=== PATIENT | male | born 1955 | race Two or more races ===

== ENCOUNTER 2019-03-17 15:20 | Emergency (ER) | payer MEDICAID ==
[~2019-03-17] VITALS: Ht 170.2 cm; Wt 77.1 kg
[2019-03-17 17:23] LABS: Basophils # (auto) 0 uL; Eosinophils # (auto) 0 uL; Lymphocytes # (auto) 0.7 uL; Mean Corpuscular Hemoglobin 31.4 pg (28.0-32.0); Monocytes # (auto) 0.8 uL; Red Cell Distribution Width 16.2 % (11.8-14.3)
[2019-03-17 17:27] LABS: Basophils % (auto) 0.9 % (0.0-2.0); Eosinophils % (auto) 0.5 % (0.0-7.0); Hemoglobin 17.6 g/dL (13.5-17.5); Mean Corpuscular Hgb Conc. 33.2 g/dL (32.0-36.0); Mean Corpuscular Volume 94.6 fL (80.0-100.0); Monocytes % (auto) 13.2 % (0.0-12.0); Neutrophils # (auto) 4.1 uL; Neutrophils % (auto) 72.4 % (37.0-80.0); Platelet Count (auto) 183 10^3/uL (140-450); White Blood Cell 5.7 10^3/uL (4.4-10.8)
[2019-03-17] MEDS ORDERED: methylPREDNISolone SOD SUCC 125 MG/2 ML VL IV ONE (17:30)
[2019-03-17] MEDS ORDERED: IPRATROPIUM BROM 0.5 MG/2.5ML INH SOL HHN ONE (17:30)
[2019-03-17] MEDS ORDERED: ALBUTEROL SULF 2.5 MG/0.5ML(0.5%) NEB SOLN HHN ONE (17:30)
[2019-03-17] MEDS ORDERED: HYDROcodone-ACET 5/325MG TAB PO ONE (17:30)
[2019-03-17 17:39] LABS: Alanine Aminotransferase 30 U/L (16-61); Albumin 3.2 g/dL (3.4-5.0); Anion Gap 5 (5-15); Aspartate Aminotransferase 32 U/L (15-37); BUN/Creatinine Ratio 17.6; Blood Urea Nitrogen 13 mg/dL (7-18); Calcium 8.2 mg/dL (8.5-10.1); Carbon Dioxide 32 mmol/L (21-32); Chloride 102 mmol/L (98-107); GFR African American 138 mL/min; GFR Non-African American 114 mL/min; Glucose 94 mg/dL (74-106); Sodium 139 mmol/L (136-145)
[2019-03-17 17:44] LABS: Alkaline Phosphatase 130 U/L (45-117); Bilirubin, Total 0.9 mg/dL (0.2-1.0); Total Protein 6.9 g/dL (6.4-8.2)
[2019-03-17 20:46] VITALS: BP 134/92
== END 2019-03-17 20:58 | disposition home or self-care (01) ==
LOC: ER 15:20
DX: S20.219A Contusion of unspecified front wall of thorax, initial encounter (principal); J44.1 Chronic obstructive pulmonary disease with (acute) exacerbation; I11.0 Hypertensive heart disease with heart failure; I50.9 Heart failure, unspecified; E11.9 Type 2 diabetes mellitus without complications; E78.5 Hyperlipidemia, unspecified; F17.210 Nicotine dependence, cigarettes, uncomplicated; F12.90 Cannabis use, unspecified, uncomplicated; W18.39XA Other fall on same level, initial encounter; Y93.89 Activity, other specified; Y99.8 Other external cause status; Y92.89 Other specified places as the place of occurrence of the external cause
CPT/HCPCS: 36415; 70450; 72070; 72125; 80053; 82962; 83735; 83880; 84484; 85025; 93005; 94640; 94761; 96374; 99284; J2930; J7611; J7644; 94644

== ENCOUNTER 2020-08-06 15:22 | Inpatient (IN) | payer MEDICAID ==
[~2020-08-06] VITALS: Ht 170.2 cm; Wt 74.8 kg
[2020-08-06 16:07] LABS: Red Cell Distribution Width 15.1 % (11.8-14.3)
[2020-08-06 16:10] LABS: Hemoglobin 18.2 g/dL (13.5-17.5); Mean Corpuscular Hemoglobin 35.1 pg (28.0-32.0); Mean Corpuscular Hgb Conc. 34.3 g/dL (32.0-36.0); Mean Corpuscular Volume 102.3 fL (80.0-100.0); Platelet Count (auto) 115 10^3/uL (140-450); Red Blood Cells 5.18 10^6/uL (4.5-5.90); White Blood Cell 3.7 10^3/uL (4.4-10.8)
[2020-08-06 16:21] LABS: Band Neutrophils % (manual) 0; Basophils % (manual) 0 (0.0-2.0); Blast Cells 0; Eosinophils % (manual) 0 (0-7); Metamyelocytes % 0; Myelocytes % 0; Promyelocytes % 0; Reactive Lymphocytes 0
[2020-08-06 16:25] LABS: Calcium 7.9 mg/dL (8.5-10.1); Potassium 3.9 mmol/L (3.5-5.1)
[2020-08-06 16:36] LABS: BUN/Creatinine Ratio 19.4; Bilirubin, Total 0.5 mg/dL (0.2-1.0); Total Protein 6.3 g/dL (6.4-8.2)
[2020-08-06] MEDS ORDERED: ASPirin 81 mg TAB PO ONE (17:00)
[2020-08-06] MEDS ORDERED: methylPREDNISolone SOD SUCC 125 MG/2 ML VL IM ONE (17:00)
[2020-08-06] MEDS ORDERED: cefTRIAXone SOD 1,000 MG VL IM ONE (17:00)
[2020-08-06] MEDS ORDERED: cefTRIAXone 1GM/50ML D5W 50 ML IV ONE ×2 (17:08→17:30)
[2020-08-06] MEDS: SODIUM CHLORIDE 0.9% 1,000 ML IV ONE ×2 (17:16→17:27)
[2020-08-06] MEDS ORDERED: methylPREDNISolone SOD SUCC 125 MG/2 ML VL IV ONE (17:30)
[2020-08-06 18:16] LABS: Lymphocytes % (manual) 5 (10.0-50.0); Monocytes % (manual) 14 (0-12)
[2020-08-06] MEDS ORDERED: LORazepam 0.5 MG TAB PO PRN (19:45)
[2020-08-06] MEDS ORDERED: DOCUSATE CALCIUM 240 MG CAP PO PRN (19:45)
[2020-08-06] MEDS ORDERED: hydrALAZINE HCL 20 MG/ML VL IV PRN (19:45)
[2020-08-06] MEDS ORDERED: NITROGLYCERIN 0.4 MG SL TAB SL PRN (19:45)
[2020-08-06] MEDS ORDERED: VANCOMYCIN PER PHARMACY 0 MG IV SCH (19:45)
[2020-08-06] MEDS ORDERED: MORPHINE SULF INJ 2 MG/ML SYRINGE 1ML IV PRN ×2 (19:45)
[2020-08-06] MEDS ORDERED: ALBUTEROL SULF HFA 90MCG INH 200DOSE IN PRN (19:45)
[2020-08-06] MEDS: BUDESONIDE (INHALATION) 180 MCG IH IN SCH (22:00)
[2020-08-06] MEDS: VANCOMYCIN 1GM/250ML 250 ML IV SCH (22:59)
[2020-08-06] MEDS: ENOXAPARIN SOD 40 MG/0.4 ML SYRINGE SC SCH (23:00)
[2020-08-06] MEDS: methylPREDNISolone SOD SUCC 125 MG/2 ML VL IV SCH (23:00)
[2020-08-06 23:19] LABS: Magnesium 1.8 mg/dL (1.6-2.6)
[2020-08-06 23:52] LABS: CRP High Sensitivity 2.11 mg/dL (< 0.3)
[2020-08-07 03:39] VITALS: BP 140/98
[2020-08-07] MEDS: methylPREDNISolone SOD SUCC 125 MG/2 ML VL IV SCH (06:13)
[2020-08-07] MEDS: PIPERACILLIN-TAZOB 3.375GM 100 ML IV SCH ×3 (06:13→12:12)
[2020-08-07 08:00] VITALS: BP 127/69
[2020-08-07] MEDS: VANCOMYCIN 1GM/250ML 250 ML IV SCH (09:23)
[2020-08-07] MEDS: ENOXAPARIN SOD 40 MG/0.4 ML SYRINGE SC SCH (09:24)
[2020-08-07] MEDS: ZINC SULFATE 220mg CAP or TAB PO SCH (09:25)
[2020-08-07] MEDS: PANTOPRAZOLE 40 MG TAB PO SCH (09:25)
[2020-08-07] MEDS: CHOLECALCIFEROL (VITD3) 2,000 UNIT CAP PO SCH (09:25)
[2020-08-07] MEDS: ASCORBIC ACID 1,000 MG TAB PO SCH (09:25)
[2020-08-07] MEDS: BUDESONIDE (INHALATION) 180 MCG IH IN SCH ×2 (10:00→20:05)
[2020-08-07 12:27] LABS: Basophils # (auto) 0 10 ^3/uL (0-0.2); Eosinophils # (auto) 0 10 ^3/uL (0-0.8); Lymphocytes # (auto) 0.2 10 ^3/uL (0.4-5.4); Mean Corpuscular Hgb Conc. 33.8 g/dL (32.0-36.0); Monocytes # (auto) 0.2 10 ^3/uL (0-1.3); White Blood Cell 2.3 10^3/uL (4.4-10.8)
[2020-08-07 12:29] LABS: Basophils % (auto) 0.8 % (0.0-2.0); Hemoglobin 19.1 g/dL (13.5-17.5); Lymphocytes % (auto) 6.8 % (10.0-50.0); Mean Corpuscular Volume 103.4 fL (80.0-100.0); Monocytes % (auto) 8.3 % (0.0-12.0); Neutrophils # (auto) 1.9 10 ^3/uL (1.6-8.6); Neutrophils % (auto) 84.1 % (37.0-80.0); Nucleated Red Blood Cells % 0.3 %; Red Blood Cells 5.46 10^6/uL (4.5-5.90); Red Cell Distribution Width 15.1 % (11.8-14.3)
[2020-08-07] MEDS: ALBUTEROL SULF HFA 90MCG INH 200DOSE IN SCH (12:30)
[2020-08-07 12:34] LABS: Hematocrit 56.4 % (41.0-53.0)
[2020-08-07 12:48] LABS: Albumin 3.1 g/dL (3.4-5.0); Potassium 4.2 mmol/L (3.5-5.1)
[2020-08-07 12:54] LABS: Bilirubin, Total 0.5 mg/dL (0.2-1.0); Total Protein 6.7 g/dL (6.4-8.2)
[2020-08-07 13:10] LABS: Calcium 7.7 mg/dL (8.5-10.1)
[2020-08-07 13:28] LABS: Platelet Count (auto) 111 10^3/uL (140-450)
[2020-08-07 16:00] VITALS: BP 139/88
[2020-08-07] MEDS ORDERED: REMDESIVIR PER PHARMACY 0 ML IV SCH (16:30)
[2020-08-07] MEDS ORDERED: REMDESIVIR 200 MG in NS 210ml LOADING DOSE ADULT IV ONE (18:00)
[2020-08-07] MEDS: DOXYCYCLINE 100 MG TAB/CAP PO SCH (22:32)
[2020-08-08] VITALS: BP 117/81
[2020-08-08] MEDS: ACETAMINOPHEN 500 MG TAB PO PRN ×2 (00:36→10:27)
[2020-08-08] MEDS ORDERED: DEXTROSE (50%) 50ML SYRG IV PRN (02:00)
[2020-08-08] MEDS: ACCU-CHEK COMFORT CURVE STRIP VI SCH ×4 (07:30→22:24)
[2020-08-08] MEDS: InsuLIN REG 1unit/0.01ml Soln (100units/ml) SC SCH ×4 (07:30→22:10)
[2020-08-08 08:00] VITALS: BP 99/68
[2020-08-08 08:47] LABS: Basophils # (auto) 0 10 ^3/uL (0-0.2); Eosinophils # (auto) 0 10 ^3/uL (0-0.8); Monocytes # (auto) 0.6 10 ^3/uL (0-1.3); Monocytes % (auto) 7.9 % (0.0-12.0); Neutrophils # (auto) 6.1 10 ^3/uL (1.6-8.6); Nucleated Red Blood Cells % 0.2 %; White Blood Cell 7.4 10^3/uL (4.4-10.8)
[2020-08-08 08:50] LABS: Basophils % (auto) 0.1 % (0.0-2.0); Hemoglobin 18.9 g/dL (13.5-17.5); Lymphocytes # (auto) 0.7 10 ^3/uL (0.4-5.4); Lymphocytes % (auto) 9.7 % (10.0-50.0); Mean Corpuscular Hemoglobin 34.9 pg (28.0-32.0); Mean Corpuscular Hgb Conc. 33.7 g/dL (32.0-36.0); Mean Corpuscular Volume 103.6 fL (80.0-100.0); Neutrophils % (auto) 82.3 % (37.0-80.0); Platelet Count (auto) 105 10^3/uL (140-450); Red Blood Cells 5.43 10^6/uL (4.5-5.90); Red Cell Distribution Width 15.3 % (11.8-14.3)
[2020-08-08 08:52] LABS: Hematocrit 56.2 % (41.0-53.0)
[2020-08-08 09:09] LABS: Potassium 4.6 mmol/L (3.5-5.1)
[2020-08-08 09:37] LABS: BUN/Creatinine Ratio 26.6; Bilirubin, Total 0.4 mg/dL (0.2-1.0); CRP High Sensitivity 3.14 mg/dL (< 0.3); Calcium 8.4 mg/dL (8.5-10.1); Total Protein 6.5 g/dL (6.4-8.2)
[2020-08-08] MEDS ORDERED: ENOXAPARIN SOD 40 MG/0.4 ML SYRINGE SC SCH (10:00)
[2020-08-08] MEDS: DOXYCYCLINE 100 MG TAB/CAP PO SCH (10:27)
[2020-08-08] MEDS: ZINC SULFATE 220mg CAP or TAB PO SCH (10:27)
[2020-08-08] MEDS: CHOLECALCIFEROL (VITD3) 2,000 UNIT CAP PO SCH (10:27)
[2020-08-08] MEDS: PANTOPRAZOLE 40 MG TAB PO SCH (10:27)
[2020-08-08] MEDS: ASCORBIC ACID 1,000 MG TAB PO SCH (10:27)
[2020-08-08] MEDS: DexAMETHasone SOD PHOS 10MG/1ML VIAL INJ IV SCH (10:28)
[2020-08-08] MEDS: REMDESIVIR 100mg 100 MG in SODIUM CHL 0.9% 230 ML IV SCH (14:50)
[2020-08-08 16:19] VITALS: BP 128/82
[2020-08-08] MEDS: ALBUTEROL SULF HFA 90MCG INH 200DOSE IN SCH (19:19)
[2020-08-08] MEDS: BUDESONIDE (INHALATION) 180 MCG IH IN SCH (19:19)
[2020-08-08] MEDS ORDERED: SODIUM CHLORIDE 0.9% 1,000 ML IV SCH (21:15)
[2020-08-08] MEDS: FUROSEMIDE 20 MG/2 ML VIAL IV SCH (22:00)
[2020-08-08] MEDS: ENOXAPARIN SOD 40 MG/0.4 ML SYRINGE SC SCH (22:24)
[2020-08-09] VITALS: BP 126/79
[2020-08-09] MEDS: FUROSEMIDE 20 MG/2 ML VIAL IV SCH (05:23)
[2020-08-09] MEDS: InsuLIN REG 1unit/0.01ml Soln (100units/ml) SC SCH ×3 (05:23→17:00)
[2020-08-09] MEDS: ACCU-CHEK COMFORT CURVE STRIP VI SCH ×3 (05:24→18:04)
[2020-08-09 06:53] LABS: Basophils # (auto) 0 10 ^3/uL (0-0.2); Basophils % (auto) 0.1 % (0.0-2.0); Eosinophils # (auto) 0 10 ^3/uL (0-0.8); Hemoglobin 18.6 g/dL (13.5-17.5); Monocytes # (auto) 0.4 10 ^3/uL (0-1.3)
[2020-08-09 06:56] LABS: Lymphocytes # (auto) 0.7 10 ^3/uL (0.4-5.4); Lymphocytes % (auto) 12.2 % (10.0-50.0); Mean Corpuscular Hemoglobin 34.3 pg (28.0-32.0); Mean Corpuscular Hgb Conc. 33.1 g/dL (32.0-36.0); Mean Corpuscular Volume 103.5 fL (80.0-100.0); Monocytes % (auto) 7.5 % (0.0-12.0); Neutrophils # (auto) 4.4 10 ^3/uL (1.6-8.6); Neutrophils % (auto) 80.2 % (37.0-80.0); Nucleated Red Blood Cells % 0.1 %; Platelet Count (auto) 90 10^3/uL (140-450); Red Blood Cells 5.42 10^6/uL (4.5-5.90); Red Cell Distribution Width 15.2 % (11.8-14.3); White Blood Cell 5.5 10^3/uL (4.4-10.8)
[2020-08-09 07:04] LABS: Hematocrit 56.1 % (41.0-53.0)
[2020-08-09 07:06] LABS: INR 1.34 (0.9-1.15); Partial Thromboplastin Time 42.3 sec (23.0-31.2)
[2020-08-09 07:20] LABS: Potassium 4.3 mmol/L (3.5-5.1)
[2020-08-09 07:30] VITALS: BP 125/93
[2020-08-09 07:38] LABS: Albumin 3.2 g/dL (3.4-5.0); BUN/Creatinine Ratio 30.8; Bilirubin, Total 0.5 mg/dL (0.2-1.0); Calcium 8.1 mg/dL (8.5-10.1); Magnesium 2.2 mg/dL (1.6-2.6); Phosphorus 2.7 mg/dL (2.5-4.90); Total Protein 6.7 g/dL (6.4-8.2)
[2020-08-09] MEDS: ALBUTEROL SULF HFA 90MCG INH 200DOSE IN SCH (07:58)
[2020-08-09 08:00] VITALS: BP 125/93
[2020-08-09 08:16] LABS: CRP High Sensitivity 1.15 mg/dL (< 0.3)
[2020-08-09] MEDS ORDERED: cefTRIAXone 1GM/50ML D5W 50 ML IV SCH (09:00)
[2020-08-09] MEDS: DexAMETHasone SOD PHOS 10MG/1ML VIAL INJ IV SCH (09:48)
[2020-08-09] MEDS: ZINC SULFATE 220mg CAP or TAB PO SCH (09:48)
[2020-08-09] MEDS: ASCORBIC ACID 1,000 MG TAB PO SCH (09:49)
[2020-08-09] MEDS: CHOLECALCIFEROL (VITD3) 2,000 UNIT CAP PO SCH (09:49)
[2020-08-09] MEDS: PANTOPRAZOLE 40 MG TAB PO SCH (09:49)
[2020-08-09] MEDS ORDERED: AZITHROMYCIN 500MG/ 250ML 250 ML IV SCH (10:00)
[2020-08-09] MEDS ORDERED: POTASSIUM CHLORIDE 8 MEQ TAB PO SCH (10:00)
[2020-08-09] MEDS: ENOXAPARIN SOD 40 MG/0.4 ML SYRINGE SC SCH (10:00)
[2020-08-09] MEDS: BUDESONIDE (INHALATION) 180 MCG IH IN SCH (10:03)
[2020-08-09 15:30] VITALS: BP 140/97
[2020-08-09] MEDS: REMDESIVIR 100mg 100 MG in SODIUM CHL 0.9% 230 ML IV SCH (15:48)
[2020-08-09 17:09] VITALS: BP 140/97
== END 2020-08-09 18:39 | disposition home health service (06) | DRG 720 ==
LOC: ER 15:22 → OVERFLOW 19:52 → TELE-WESTW 08-07 03:20
PROVIDERS: ADMIT Family Medicine; ATTEND Internal Medicine
PROC: XW033E5 Introduction of Remdesivir Anti-infective into Peripheral Vein, Percutaneous Approach, New Technology Group 5 (ICD-10-PCS; principal; 2020-08-07)
PROC: 05HC33Z Insertion of Infusion Device into Left Basilic Vein, Percutaneous Approach (ICD-10-PCS; 2020-08-09)
PROC: B54NZZA Ultrasonography of Left Upper Extremity Veins, Guidance (ICD-10-PCS; 2020-08-09)
DX: A41.89 Other specified sepsis (principal); J12.82 Pneumonia due to coronavirus disease 2019; I10 Essential (primary) hypertension; E11.65 Type 2 diabetes mellitus with hyperglycemia; J96.01 Acute respiratory failure with hypoxia; U07.1 COVID-19; D69.6 Thrombocytopenia, unspecified; F12.10 Cannabis abuse, uncomplicated; F17.210 Nicotine dependence, cigarettes, uncomplicated; J44.0 Chronic obstructive pulmonary disease with (acute) lower respiratory infection; N40.0 Benign prostatic hyperplasia without lower urinary tract symptoms; Z79.82 Long term (current) use of aspirin; Z99.81 Dependence on supplemental oxygen; Z82.49 Family history of ischemic heart disease and other diseases of the circulatory system
CPT/HCPCS: 36415; 36600; 71045; 80053; 80061; 82728; 82805; 82962; 83036; 83605; 83615; 83735; 83880; 84100; 84443; 84484; 85007; 85025; 85027; 85379; 85610; 85730; 86141; 87040; 87426; 94640; G0378; J0696; J1100; J1815; J2543

== ENCOUNTER 2020-08-10 09:03 | Outpatient (CLI) | payer MEDICAID ==
[~2020-08-10] VITALS: Ht 170.2 cm; Wt 73.0 kg
[2020-08-10] MEDS ORDERED: REMDESIVIR PER PHARMACY 0 ML IV SCH (09:15)
[2020-08-10 09:42] VITALS: BP 141/91
[2020-08-10] MEDS ORDERED: REMDESIVIR 100mg 100 MG in SODIUM CHL 0.9% 230 ML IV SCH (10:00)
[2020-08-10 11:09] VITALS: BP 156/96
== END 2020-08-10 11:30 | disposition home or self-care (01) ==
LOC: ER 09:03
PROVIDERS: ATTEND Internal Medicine
DX: U07.1 COVID-19 (principal); I10 Essential (primary) hypertension; J44.9 Chronic obstructive pulmonary disease, unspecified; F17.210 Nicotine dependence, cigarettes, uncomplicated; J18.9 Pneumonia, unspecified organism; E11.65 Type 2 diabetes mellitus with hyperglycemia; Z79.82 Long term (current) use of aspirin; Z99.81 Dependence on supplemental oxygen

== ENCOUNTER → 2020-08-11 | Outpatient (CLI) | payer MEDICAID ==
[~2020-08-11] VITALS: Ht 30.5 cm; Wt 0.5 kg
[~2020-08-11] MED LIST: REMDESIVIR 100mg 100 MG in SODIUM CHL 0.9% 230 ML IV ONE
[2020-08-11 09:12] VITALS: BP 134/84
[2020-08-11 09:20] VITALS: BP 134/84
[2020-08-11 09:35] VITALS: BP 134/84
[2020-08-11 10:20] VITALS: BP 142/87
[2020-08-11 10:50] VITALS: BP 140/92
== END | disposition home or self-care (01) ==
LOC: ER 08:52
PROVIDERS: ATTEND Internal Medicine
DX: U07.1 COVID-19 (principal); J44.9 Chronic obstructive pulmonary disease, unspecified; F17.210 Nicotine dependence, cigarettes, uncomplicated; E11.65 Type 2 diabetes mellitus with hyperglycemia; I10 Essential (primary) hypertension; J18.9 Pneumonia, unspecified organism; Z79.82 Long term (current) use of aspirin; Z99.81 Dependence on supplemental oxygen

== ENCOUNTER 2020-12-16 16:11 | Inpatient (IN) | payer MEDICAID ==
[~2020-12-16] VITALS: Ht 170.2 cm; Wt 80.7 kg
[2020-12-16 17:07] LABS: Basophils # (auto) 0 10 ^3/uL (0-0.2); Eosinophils # (auto) 0.1 10 ^3/uL (0-0.8); Lymphocytes # (auto) 0.7 10 ^3/uL (0.4-5.4); Monocytes # (auto) 0.6 10 ^3/uL (0-1.3); Neutrophils # (auto) 2.7 10 ^3/uL (1.6-8.6); Neutrophils % (auto) 65.2 % (37.0-80.0); Platelet Count (auto) 192 10^3/uL (140-450); White Blood Cell 4.1 10^3/uL (4.4-10.8)
[2020-12-16 17:09] LABS: Basophils % (auto) 0.9 % (0.0-2.0); Hematocrit 54.2 % (41.0-53.0); Hemoglobin 18.5 g/dL (13.5-17.5); Lymphocytes % (auto) 16.9 % (10.0-50.0); Mean Corpuscular Hemoglobin 35.3 pg (28.0-32.0); Mean Corpuscular Hgb Conc. 34.2 g/dL (32.0-36.0); Mean Corpuscular Volume 103.2 fL (80.0-100.0); Nucleated Red Blood Cells % 0.4 %; Red Blood Cells 5.25 10^6/uL (4.5-5.90); Red Cell Distribution Width 15.7 % (11.8-14.3)
[2020-12-16 17:10] LABS: Albumin 3.5 g/dL (3.4-5.0); Calcium 8.3 mg/dL (8.5-10.1)
[2020-12-16] MEDS ORDERED: ASPirin 81 mg TAB PO ONE (17:30)
[2020-12-16 18:35] LABS: Urine Bacteria NONE SEEN /hpf (None Seen); Urine Blood Negative /uL (Negative); Urine Mucus FEW (None Seen); Urine Specific Gravity 1.013 (1.001-1.035); Urine WBC <1 /hpf (0 - 3)
[2020-12-16] MEDS ORDERED: MORPHINE SULFATE 4 MG/ML SYR/VIAL IV PRN (23:30)
[2020-12-16] MEDS ORDERED: NITROGLYCERIN 0.4 MG SL TAB SL PRN (23:30)
[2020-12-16] MEDS ORDERED: DEXTROSE (50%) 50ML SYRG IV PRN (23:30)
[2020-12-16] MEDS ORDERED: MORPHINE SULF INJ 2 MG/ML SYRINGE 1ML IV PRN (23:30)
[2020-12-16] MEDS ORDERED: ACETAMINOPHEN 325 MG TAB PO PRN (23:30)
[2020-12-16] MEDS ORDERED: ONDANSETRON HCL 4 MG/2 ML VIAL IV PRN (23:30)
[2020-12-16] MEDS ORDERED: DOCUSATE SOD 100 MG CAP PO PRN (23:30)
[2020-12-16] MEDS ORDERED: HYDROcodone-ACET 5/325MG TAB PO PRN (23:30)
[2020-12-17] MEDS ORDERED: ALBUTEROL SULF HFA 90MCG INH 200DOSE IN SCH (06:00)
[2020-12-17] MEDS: SODIUM CHLOR 0.9% PF (SALINE LOCK) 10ML VIAL/SYR IV SCH ×3 (06:11→22:14)
[2020-12-17 06:52] LABS: Basophils # (auto) 0 10 ^3/uL (0-0.2); Eosinophils # (auto) 0.1 10 ^3/uL (0-0.8); Eosinophils % (auto) 2.2 % (0.0-7.0); Hemoglobin 18.3 g/dL (13.5-17.5); Monocytes # (auto) 0.6 10 ^3/uL (0-1.3); Potassium 4.3 mmol/L (3.5-5.1)
[2020-12-17 06:54] LABS: Basophils % (auto) 0.9 % (0.0-2.0); Hematocrit 53.5 % (41.0-53.0); Lymphocytes # (auto) 0.7 10 ^3/uL (0.4-5.4); Lymphocytes % (auto) 15.4 % (10.0-50.0); Mean Corpuscular Hemoglobin 35.7 pg (28.0-32.0); Mean Corpuscular Hgb Conc. 34.2 g/dL (32.0-36.0); Mean Corpuscular Volume 104.5 fL (80.0-100.0); Monocytes % (auto) 13.3 % (0.0-12.0); Neutrophils # (auto) 3.3 10 ^3/uL (1.6-8.6); Neutrophils % (auto) 68.2 % (37.0-80.0); Nucleated Red Blood Cells % 0.2 %; Platelet Count (auto) 174 10^3/uL (140-450); Red Blood Cells 5.12 10^6/uL (4.5-5.90); Red Cell Distribution Width 15.7 % (11.8-14.3); White Blood Cell 4.8 10^3/uL (4.4-10.8)
[2020-12-17] MEDS: ACCU-CHEK COMFORT CURVE STRIP VI SCH ×4 (06:54→22:14)
[2020-12-17] MEDS: InsuLIN REG 1unit/0.01ml Soln (100units/ml) SC SCH ×3 (06:55→17:00)
[2020-12-17 06:58] LABS: Albumin 3.4 g/dL (3.4-5.0); Bilirubin, Total 0.7 mg/dL (0.2-1.0); Calcium 8.3 mg/dL (8.5-10.1); Total Protein 6.8 g/dL (6.4-8.2)
[2020-12-17] MEDS: FAMOTIDINE 20 MG TAB PO SCH ×2 (10:00→22:14)
[2020-12-17] MEDS: ENOXAPARIN SOD 40 MG/0.4 ML SYRINGE SC SCH (10:00)
[2020-12-17] MEDS: ASPirin 81 mg TAB PO SCH (10:00)
[2020-12-17] MEDS ORDERED: AZITHROMYCIN 250 MG TAB PO ONE (13:00)
[2020-12-17] MEDS ORDERED: predniSONE 20 MG TAB PO ONE (15:45)
[2020-12-17 16:56] VITALS: BP 105/73
[2020-12-17 17:00] VITALS: BP 105/73
[2020-12-17 22:00] VITALS: BP 113/76
[2020-12-17] MEDS ORDERED: InsuLIN REG 1unit/0.01ml Soln (100units/ml) SC SCH (22:00)
[2020-12-18 05:00] VITALS: BP 108/69
[2020-12-18] MEDS: SODIUM CHLOR 0.9% PF (SALINE LOCK) 10ML VIAL/SYR IV SCH ×2 (06:00→13:51)
[2020-12-18 06:38] LABS: Basophils # (auto) 0 10 ^3/uL (0-0.2); Basophils % (auto) 0.3 % (0.0-2.0); Eosinophils # (auto) 0 10 ^3/uL (0-0.8); Eosinophils % (auto) 0.1 % (0.0-7.0); Lymphocytes # (auto) 0.5 10 ^3/uL (0.4-5.4); Monocytes # (auto) 0.5 10 ^3/uL (0-1.3); Monocytes % (auto) 10.5 % (0.0-12.0); Neutrophils # (auto) 3.6 10 ^3/uL (1.6-8.6); White Blood Cell 4.6 10^3/uL (4.4-10.8)
[2020-12-18 06:41] LABS: Hematocrit 50.9 % (41.0-53.0); Hemoglobin 17.6 g/dL (13.5-17.5); Lymphocytes % (auto) 10.4 % (10.0-50.0); Mean Corpuscular Hgb Conc. 34.6 g/dL (32.0-36.0); Mean Corpuscular Volume 104.2 fL (80.0-100.0); Neutrophils % (auto) 78.7 % (37.0-80.0); Nucleated Red Blood Cells % 0.2 %; Platelet Count (auto) 165 10^3/uL (140-450); Red Blood Cells 4.88 10^6/uL (4.5-5.90); Red Cell Distribution Width 15.5 % (11.8-14.3)
[2020-12-18] MEDS: InsuLIN REG 1unit/0.01ml Soln (100units/ml) SC SCH ×2 (07:00→11:30)
[2020-12-18 07:01] LABS: BUN/Creatinine Ratio 24.5; Calcium 8.5 mg/dL (8.5-10.1); Potassium 4.5 mmol/L (3.5-5.1)
[2020-12-18] MEDS: ACCU-CHEK COMFORT CURVE STRIP VI SCH ×2 (07:11→11:38)
[2020-12-18 09:00] VITALS: BP 98/73
[2020-12-18] MEDS: ENOXAPARIN SOD 40 MG/0.4 ML SYRINGE SC SCH (09:43)
[2020-12-18] MEDS: ASPirin 81 mg TAB PO SCH (09:44)
[2020-12-18] MEDS: FAMOTIDINE 20 MG TAB PO SCH (09:44)
[2020-12-18] MEDS ORDERED: predniSONE 20 MG TAB PO SCH (10:00)
[2020-12-18] MEDS ORDERED: AZITHROMYCIN 250 MG TAB PO SCH (10:00)
[2020-12-18] MEDS ORDERED: FAMO-12 PO (12:57)
[2020-12-18] MEDS ORDERED: POTA10TA51 PO (12:57)
[2020-12-18] MEDS ORDERED: CHOL20007 PO (12:57)
[2020-12-18] MEDS ORDERED: FURO40TA4 PO (12:57)
[2020-12-18] MEDS ORDERED: METF-370 PO (12:57)
[2020-12-18] MEDS ORDERED: CARV3.1240 PO (12:57)
[2020-12-18] MEDS ORDERED: LISI2.5T47 PO (12:57)
[2020-12-18] MEDS ORDERED: ATOR20TA PO (12:57)
[2020-12-18] MEDS ORDERED: TAMS0.4C36 PO (12:57)
[2020-12-18] MEDS ORDERED: ASPI-543 PO (12:57)
[2020-12-18 13:00] VITALS: BP 128/88
[2020-12-18] MEDS ORDERED: PRED20TA2 PO (14:00)
[2020-12-18] MEDS ORDERED: AZIT500T66 PO (14:00)
== END 2020-12-18 15:08 | disposition home or self-care (01) | DRG 140 ==
LOC: ER 16:11 → TELE 23:21 → TELE-CENTR 12-17 16:53
PROVIDERS: ADMIT Nurse Practitioner Family; ATTEND Internal Medicine Pulmonary Disease
DX: J44.1 Chronic obstructive pulmonary disease with (acute) exacerbation (principal); J96.21 Acute and chronic respiratory failure with hypoxia; I24.9 Acute ischemic heart disease, unspecified; E11.65 Type 2 diabetes mellitus with hyperglycemia; M54.12 Radiculopathy, cervical region; I10 Essential (primary) hypertension; D72.819 Decreased white blood cell count, unspecified; F17.210 Nicotine dependence, cigarettes, uncomplicated; Z82.49 Family history of ischemic heart disease and other diseases of the circulatory system; Z20.822 Contact with and (suspected) exposure to COVID-19
CPT/HCPCS: 36415; 71045; 72125; 80048; 80053; 81001; 82962; 83036; 84484; 85025; 87426; 93005; 96372; G0378; J1815